=== PATIENT | female | born 1990 | race Caucasian/White ===

== ENCOUNTER 2019-06-30 04:15 | Inpatient (IN) | payer OTHER ==
[2019-06-30] MEDS ORDERED: Nalbuphine 10 MG/ML Syringe IVPUSH PRN (19:27)
[2019-06-30] MEDS ORDERED: Calcium Carbonate 500 MG Tab.Chew PO PRN (19:27)
[2019-06-30] MEDS ORDERED: Sodium Chloride 0.9% 10 ML Syringe FLUSH PRN (19:27)
[2019-06-30] MEDS ORDERED: Ondansetron 4 MG/2 ML SDV IVPUSH PRN (19:27)
[2019-06-30] MEDS ORDERED: Oxytocin/Lactated Ringers 20 UNIT/1,000 ML BAG IV SCH (19:30)
[2019-06-30] MEDS ORDERED: Oxytocin/Lactated Ringers 10 UNIT/1,000 ML BAG IV SCH (19:30)
[2019-06-30] MEDS ORDERED: Misoprostol 25 MCG (1/4 of 100 MCG) Tab VAG SCH (20:00)
--- NOTE | 2019-06-30 20:12 | PCM.HP.2 ---
<Messi Russ - Last Filed: 06/30/19 20:20> H&P History of Present Illness - General Date of Service: 06/30/19 Admit Problem/Dx: induction, labor and delivery Source of Information: Patient History Limitations: Reports: No Limitations - History of Present Illness Initial Comments - Free Text/Narative: Ms. La Fang is a very pleasant who has an TYRESE of 07/05/2019 who presents to L&D for induction, labor and delivery. She is currently 39 weeks and 2 days gestational age. Her induction was scheduled per Dr. Godinez who she has been seeing regularly, most recently 06/23/2019 where she measured 43 cm fundal height and FHR of 144. Today she report having tightness in her upper abdomen who "thinks she was having contractions". These contractions started happening this afternoon (06/30) and admits they come and go. She describes them as "more uncomfortable rather than a pain". She reports having continued low back pain that is worse and more frequent. She endorses that last night her pain was as much as a 7/10 but right now a 3/10. She has used a heating pad and taken a lot of baths which seem to help and denies the pain radiating anywhere else or other symptoms with this pain. She denies any bleeding disorders, asthma or hypertension. GBS: (negative) Blood type: A+ Blood sugars - "i was good this week", pt denies any high sugars since her last appointment. Pt has been monitoring throughout since 02/23/2019 2/2 to an abnormal GTT. U/S findings: velamentous cord insertion on 03/06 U/S, probable nuchal cord on 05/28 U/S Last exam per Dr. Godinez on 06/18/2019: "cervix closed, long, soft, posterior, vertex floating" Labs: (04/06/2019) RBC: 4.36 WBC: 14.4 Hgb: 12.7 Hct: 38.2 Plt: 238 - Related Data Allergies/Adverse Reactions: Allergies Allergy/AdvReac Type Severity Reaction Status Date / Time No Known Allergies Allergy Verified 06/30/19 19:26 Home Medications: Home Meds Vit with Ca/FA/Iron [ Plus Iron] 1 each PO DAILY #40 tablet [Rx] H&P Review of Systems - Review of Systems: Review Of Systems: See Below General: Reports: No Symptoms, Other (Patient reports having hot flashes the last couple of months of her - not everyday) HEENT: Reports: Other (pt reports "on the tail end of a sinus infection", reports having congestion in her nose as well as ear pressure. Endorses it having got better.) Pulmonary: Reports: No Symptoms, Shortness of Breath (relates only sometimes not able to take full breath, denies dizzyness, painful breathing, rapid/ shallow breaths) Cardiovascular: Reports: No Symptoms, Edema (has been relatively present throughout ) Gastrointestinal: Reports: No Symptoms Genitourinary: Reports: No Symptoms Musculoskeletal: Reports: No Symptoms Skin: Reports: No Symptoms Psychiatric: Reports: No Symptoms Neurological: Reports: No Symptoms Hematologic/Lymphatic: Reports: No Symptoms Immunologic: Reports: No Symptoms Exam - Exam Exam: See Below - Vital Signs Weight: 286 lb - Exam General: Alert, Oriented HEENT: Conjunctiva Clear, Hearing Intact, Pupils Equal, Pupils Reactive Neck: Supple, Trachea Midline, Full Range of Motion Cardiovascular: Regular Rate, Regular Rhythm (No M,R,G), Normal S1, Normal S2 Extremities: Normal Inspection, Pedal Edema (2+) Peripheral Pulses: 2+: Radial (L) (normal), Radial (R) (normal) Skin: Warm, Dry, Intact Neuro Extensive - Mental Status: Alert, Oriented x3, Normal Mood/Affect, Normal Cognition Psychiatric: Alert, Normal Affect, Normal Mood - Patient Data Result Diagrams: 06/30/19 19:50 Problem List Initiated/Reviewed/Updated: Yes <Duke Godinez - Last Filed: 07/01/19 15:19> H&P History of Present Illness - General Admit Problem/Dx: Admission Diagnosis/Problem Admission Diagnosis/Problem Exam - Vital Signs Vital Signs: Last Vital Signs Temp 97.9 F 06/30/19 19:27 Pulse 67 06/30/19 19:27 Resp 16 06/30/19 19:27 BP 128/69 06/30/19 19:27 Pulse Ox 97 07/01/19 01:57 - Patient Data Lab Results Last 24 hrs: Laboratory Results - last 24 hr 06/30/19 06/30/19 06/30/19 Range/Units 19:50 19:50 23:56 WBC 10.62 H (3.98-10.04) K/mm3 RBC 4.05 (3.98-5.22) M/mm3 Hgb 11.9 (11.2-15.7) gm/dl Hct 35.0 (34.1-44.9) % MCV 86.4 (79.4-94.8) fl MCH 29.4 (25.6-32.2) pg MCHC 34.0 (32.2-35.5) g/dl RDW Std Deviation 43.2 (36.4-46.3) fL Plt Count 239 (182-369) K/mm3 MPV 10.4 (9.4-12.3) fl Neut % (Auto) 70.2 (34.0-71.1) % Lymph % (Auto) 22.3 (19.3-51.7) % [place] % (Auto) 6.6 (4.7-12.5) % Eos % (Auto) 0.8 (0.7-5.8) Baso % (Auto) 0.1 (0.1-1.2) % Neut # (Auto) 7.46 H (1.56-6.13) K/mm3 Lymph # (Auto) 2.37 (1.18-3.74) K/mm3 [place] # (Auto) 0.70 H (0.24-0.36) K/mm3 Eos # (Auto) 0.08 (0.04-0.36) K/mm3 Baso # (Auto) 0.01 (0.01-0.08) K/mm3 POC Glucose 83 (70-105) mg/dL RPR Non-reactive (NONREACTIVE) 07/01/19 Range/Units 03:53 WBC (3.98-10.04) K/mm3 RBC (3.98-5.22) M/mm3 Hgb (11.2-15.7) gm/dl Hct (34.1-44.9) % MCV (79.4-94.8) fl MCH (25.6-32.2) pg MCHC (32.2-35.5) g/dl RDW Std Deviation (36.4-46.3) fL Plt Count (182-369) K/mm3 MPV (9.4-12.3) fl Neut % (Auto) (34.0-71.1) % Lymph % (Auto) (19.3-51.7) % [place] % (Auto) (4.7-12.5) % Eos % (Auto) (0.7-5.8) Baso % (Auto) (0.1-1.2) % Neut # (Auto) (1.56-6.13) K/mm3 Lymph # (Auto) (1.18-3.74) K/mm3 [place] # (Auto) (0.24-0.36) K/mm3 Eos # (Auto) (0.04-0.36) K/mm3 Baso # (Auto) (0.01-0.08) K/mm3 POC Glucose 101 (70-105) mg/dL RPR (NONREACTIVE) Result Diagrams: 06/30/19 19:50 Sepsis Event Note - Focused Exam Vital Signs: Vital Signs Temp Pulse Resp BP Pulse Ox 07/01/19 01:57 97 06/30/19 19:27 97.9 F 67 16 128/69 98 Date Exam was Performed: 07/01/19 Time Exam was Performed: 15:18 - Problem List (1) 39 weeks gestation of SNOMED Code(s): 10032360 ICD Code: Z3A.39 - 39 WEEKS GESTATION OF Status: Acute Current Visit: Yes Problem List Initiated/Reviewed/Updated: No Orders Last 24hrs: Active Orders 24 hr Category Date Time Status Patient Status [ADT] Routine ADT 06/30/19 19:27 Active Activity as Tolerated [RC] PFP Care 06/30/19 19:27 Active Communication Order [RC] ASDIRECTED Care 06/30/19 19:27 Active Communication Order [RC] ASDIRECTED Care 07/01/19 01:57 Active Cooling Warming Measures [RC] ASDIRECTED Care 07/01/19 01:57 Active Heart Tones [RC] ASDIRECTED Care 06/30/19 19:27 Active Notify Provider [RC] ASDIRECTED Care 07/01/19 01:57 Active Notify Provider [RC] PFP Care 06/30/19 19:27 Active Notify Provider [RC] PRN Care 06/30/19 19:27 Active Oxygen Therapy [RC] ASDIRECTED Care 07/01/19 01:57 Active Peripheral IV Care [RC] . DIRECTED Care 06/30/19 19:27 Active Pulse Oximetry [RC] ASDIRECTED Care 07/01/19 01:57 Active Vital Signs [RC] PER UNIT ROUTINE Care 06/30/19 19:27 Active Regular Diet [DIET] Diet 07/01/19 Breakfast Active Bupivacaine/fentaNYL/NS [fentaNYL/Bupivacaine/NS 2 MCG- Med 07/01/19 01:57 Active 0.125% 100 ML] 100 ml EPIDUR CONTINUOUS PRN Calcium Carbonate [Tums] Med 06/30/19 19:27 Active 1,000 mg PO Q2H PRN Lactated Ringers [Ringers, Lactated] 1,000 ml Med 06/30/19 19:30 Active IV ASDIRECTED Nalbuphine [Nubain] Med 06/30/19 19:27 Active 10 mg IVPUSH Q2H PRN Ondansetron [Zofran] Med 06/30/19 19:27 Active 4 mg IVPUSH Q4H PRN Oxytocin/Lactated Ringers [Pitocin in LR 10 Units/1,000 Med 06/30/19 19:30 Active ML] 10 unit in 1,000 ml IV TITRATE Oxytocin/Lactated Ringers [Pitocin in LR 20 Units/1,000 Med 06/30/19 19:30 Active ML] 20 unit in 1,000 ml IV .CONTINUOUS Sodium Chloride 0.9% [Saline Flush] Med 06/30/19 19:27 Active 10 ml FLUSH ASDIRECTED PRN diphenhydrAMINE [Benadryl] Med 07/01/19 01:57 Active 25 mg IVPUSH Q6H PRN ePHEDrine [ePHEDrine sulfate] Med 07/01/19 01:57 Active 5 mg IVPUSH ASDIRECTED PRN fentaNYL [Sublimaze] Med 07/01/19 01:57 Active 100 mcg EPIDUR Q3H PRN miSOPROStoL [Cytotec] Med 06/30/19 20:00 Active 25 mcg VAG ONETIME Electronic Heart Tones Ext w TOCO [WOMSER] Oth 06/30/19 19:27 Ordered Routine Electronic Heart Tones Internal [WOMSER] Per Unit Oth 06/30/19 19:27 Ordered Routine Peripheral IV Insertion Adult [OM.PC] Routine Oth 06/30/19 19:27 Ordered Resuscitation Status Routine Resus Stat 06/30/19 19:27 Ordered Medication Orders Calcium Carbonate/Glycine (Tums) 1,000 mg PO Q2H PRN PRN Reason: Indigestion Diphenhydramine HCl (Benadryl) 25 mg IVPUSH Q6H PRN PRN Reason: Itching Ephedrine Sulfate (Ephedrine Sulfate) 5 mg IVPUSH ASDIRECTED PRN PRN Reason: HYPOTENTSION Last Admin: 07/01/19 03:35 Dose: 5 mg Fentanyl (Sublimaze) 100 mcg EPIDUR Q3H PRN PRN Reason: Pain Last Admin: 07/01/19 02:19 Dose: 100 mcg Fentanyl/Bupivacaine HCl (Fentanyl/Bupivacaine/Ns 2 Mcg-0.125% 100 Ml) 100 ml EPIDUR CONTINUOUS PRN PRN Reason: Pain Last Admin: 07/01/19 02:19 Dose: 100 ml Lactated Ringer's (Ringers, Lactated) 1,000 mls @ 100 mls/hr IV ASDIRECTED BRITTNEY Last Admin: 07/01/19 03:36 Dose: 100 mls/hr Infusion: 07/01/19 03:36 Dose: 100 mls/hr Admin: 07/01/19 01:28 Dose: 100 mls/hr Oxytocin/Lactated Ringer's (Pitocin In Lr 10 Units/1,000 Ml) 10 unit in 1,000 mls @ 12 mls/hr IV TITRATE BRITTNEY; Protocol Oxytocin/Lactated Ringer's (Pitocin In Lr 20 Units/1,000 Ml) 20 unit in 1,000 mls @ 500 mls/hr IV .CONTINUOUS BRITTNEY Misoprostol (Cytotec) 25 mcg VAG ONETIME BRITTNEY Last Admin: 06/30/19 19:56 Dose: 25 mcg Nalbuphine HCl (Nubain) 10 mg IVPUSH Q2H PRN PRN Reason: Pain Ondansetron HCl (Zofran) 4 mg IVPUSH Q4H PRN PRN Reason: Nausea/Vomiting Sodium Chloride (Saline Flush) 10 ml FLUSH ASDIRECTED PRN PRN Reason: Keep Vein Open Patient seen, examined by me and discussed with student. - Mortality Measure Prognosis:: Good
[2019-07-01] MEDS ORDERED: Bupivacaine 0.25% 10 ML SDV ONE
[2019-07-01] MEDS: Lactated Ringers 1,000 ML IV SCH ×2 (01:28→03:36)
[2019-07-01] MEDS ORDERED: diphenhydrAMINE 50 MG/ML SDV IVPUSH PRN (01:57)
[2019-07-01] MEDS ORDERED: ePHEDrine 50 MG/ML SDV IVPUSH PRN (01:57)
[2019-07-01] MEDS ORDERED: fentaNYL 100 MCG/2 ML SDV EPIDUR PRN (01:57)
[2019-07-01] MEDS ORDERED: Bupivacaine/fentaNYL/NS 100 ML Bag EPIDUR PRN (01:57)
--- NOTE | 2019-07-01 02:35 | PCM.PREANE ---
Preanesthetic Assessment - Procedure Proposed Procedure: epidural - Anesthesia/Transfusion/Family Hx Anesthesia History: Prior Anesthesia Without Reaction Family History of Anesthesia Reaction: No Transfusion History: No Prior Transfusion(s) - Review of Systems General: Fatigue Pulmonary: No Symptoms Cardiovascular: No Symptoms Gastrointestinal: Abdominal Pain (labor) Neurological: No Symptoms Other: Reports: None - Physical Assessment Vital Signs: Last Vital Signs Temp Pulse Resp BP Pulse Ox 97 07/01/19 01:57 Height: 1.75 m Weight: 129.727 kg ASA Class: 2 Mental Status: Alert & Oriented x3 Airway Class: Mallampati = 2 Dentition: Reports: Normal Dentition Thyro-Mental Finger Breadths: 3 Mouth Opening Finger Breadths: 3 ROM/Head Extension: Full Lungs: Clear to Auscultation, Normal Respiratory Effort Cardiovascular: Regular Rate, Regular Rhythm - Lab Values: Laboratory Last Values WBC 10.62 K/mm3 (3.98-10.04) H 06/30/19 19:50 RBC 4.05 M/mm3 (3.98-5.22) 06/30/19 19:50 Hgb 11.9 gm/dl (11.2-15.7) 06/30/19 19:50 Hct 35.0 % (34.1-44.9) 06/30/19 19:50 MCV 86.4 fl (79.4-94.8) 06/30/19 19:50 MCH 29.4 pg (25.6-32.2) 06/30/19 19:50 MCHC 34.0 g/dl (32.2-35.5) 06/30/19 19:50 RDW Std Deviation 43.2 fL (36.4-46.3) 06/30/19 19:50 Plt Count 239 K/mm3 (182-369) 06/30/19 19:50 MPV 10.4 fl (9.4-12.3) 06/30/19 19:50 Neut % (Auto) 70.2 % (34.0-71.1) 06/30/19 19:50 Lymph % (Auto) 22.3 % (19.3-51.7) 06/30/19 19:50 [place] % (Auto) 6.6 % (4.7-12.5) 06/30/19 19:50 Eos % (Auto) 0.8 (0.7-5.8) 06/30/19 19:50 Baso % (Auto) 0.1 % (0.1-1.2) 06/30/19 19:50 Neut # (Auto) 7.46 K/mm3 (1.56-6.13) H 06/30/19 19:50 Lymph # (Auto) 2.37 K/mm3 (1.18-3.74) 06/30/19 19:50 [place] # (Auto) 0.70 K/mm3 (0.24-0.36) H 06/30/19 19:50 Eos # (Auto) 0.08 K/mm3 (0.04-0.36) 06/30/19 19:50 Baso # (Auto) 0.01 K/mm3 (0.01-0.08) 06/30/19 19:50 POC Glucose 83 mg/dL (70-105) 06/30/19 23:56 RPR Non-reactive (NONREACTIVE) 06/30/19 19:50 - Allergies Allergies/Adverse Reactions: Allergies Allergy/AdvReac Type Severity Reaction Status Date / Time No Known Allergies Allergy Verified 06/30/19 19:26 - Anesthesia Plan Pre-Op Medication Ordered: None - Acknowledgements Anesthesia Type Planned: Epidural Pt an Appropriate Candidate for the Planned Anesthesia: Yes Alternatives and Risks of Anesthesia Discussed w Pt/Guardian: Yes Pt/Guardian Understands and Agrees with Anesthesia Plan: Yes PreAnesthesia Questionnaire - Past Health History Medical/Surgical History: Denies Medical/Surgical History HEENT History: Reports: Other (See Below) Other HEENT History: wears contacts Respiratory History: Reports: Asthma, Other (See Below) Other Respiratory History: Exercise induced asthma Gastrointestinal History: Reports: GERD [employer] History: Reports: - SUBSTANCE USE Tobacco Use Within Last Twelve Months: Smokeless Tobacco Second Hand Smoke Exposure: Yes Recreational Drug Use History: No - HOME MEDS Home Medications: Home Meds Vit with Ca/FA/Iron [ Plus Iron] 1 each PO DAILY #40 tablet [Rx] - CURRENT (IN HOUSE) MEDS Current Meds: Current Medications Calcium Carbonate/Glycine (Tums) 1,000 mg PO Q2H PRN PRN Reason: Indigestion Diphenhydramine HCl (Benadryl) 25 mg IVPUSH Q6H PRN PRN Reason: Itching Ephedrine Sulfate (Ephedrine Sulfate) 5 mg IVPUSH ASDIRECTED PRN PRN Reason: HYPOTENTSION Fentanyl (Sublimaze) 100 mcg EPIDUR Q3H PRN PRN Reason: Pain Last Admin: 07/01/19 02:19 Dose: 100 mcg Fentanyl/Bupivacaine HCl (Fentanyl/Bupivacaine/Ns 2 Mcg-0.125% 100 Ml) 100 ml EPIDUR CONTINUOUS PRN PRN Reason: Pain Last Admin: 07/01/19 02:19 Dose: 100 ml Lactated Ringer's (Ringers, Lactated) 1,000 mls @ 100 mls/hr IV ASDIRECTED BRITTNEY Last Admin: 07/01/19 01:28 Dose: 100 mls/hr Oxytocin/Lactated Ringer's (Pitocin In Lr 10 Units/1,000 Ml) 10 unit in 1,000 mls @ 12 mls/hr IV TITRATE BRITTNEY; Protocol Oxytocin/Lactated Ringer's (Pitocin In Lr 20 Units/1,000 Ml) 20 unit in 1,000 mls @ 500 mls/hr IV .CONTINUOUS BRITTNEY Misoprostol (Cytotec) 25 mcg VAG ONETIME BRITTNEY Last Admin: 06/30/19 19:56 Dose: 25 mcg Misoprostol (Cytotec) 50 mcg VAG ONETIME ONE Stop: 07/01/19 04:01 Nalbuphine HCl (Nubain) 10 mg IVPUSH Q2H PRN PRN Reason: Pain Ondansetron HCl (Zofran) 4 mg IVPUSH Q4H PRN PRN Reason: Nausea/Vomiting Sodium Chloride (Saline Flush) 10 ml FLUSH ASDIRECTED PRN PRN Reason: Keep Vein Open Discontinued Medications Misoprostol (Cytotec) 25 mcg VAG ONETIME ONE Stop: 07/01/19 00:01
[2019-07-01] MEDS ORDERED: Misoprostol 25 MCG (1/4 of 100 MCG) Tab VAG ONE ×2 (04:00)
--- NOTE | 2019-07-01 04:42 | PCM.DEL ---
L & D Note - General Info Date of Service: 07/01/19 Mother's Due Date: 07/05/19 - Delivery Note Labor: Augmented by Oxytocin Cervical Ripening Method: Misoprostil Delivery Outcome: Livebirth (Male liveborn Saturday07/01/2019 at 0415 hrs. CHIN nuchal cord 2 under epidural anesthesia over no episiotomy Apgars 8/8 at one and 5 minutes respectively 30/7/50 grams 8 lbs. 4 oz.) Infant Delivery Method: Spontaneous Vaginal Delivery-Single Delivery Mode: Spontaneous Presentation: Left Occiput Anterior (CHIN) Nuchal Cord: Present (x2 tight unable to reduce over head or shoulders and cord clamped and cut delivery approximately 10 seconds after cutting cord) Anesthesia Type: None Episiotomy Type: None Laceration: None Placenta: Intact, Spontaneous (0418 hrs Saturday07/01/2019 velamentous insertion of the cord examined and intact) Cord: 3 Vessels Estimated Blood Loss: 250 Resuscitation Needed: No : Suctioned, Bulb Syringe, Stimulated, Warmed, [place] Used, Warmer Used Provider: Duke Godinez Score 1 min: 8 Score 5 min: 8 - General Info Date of Service: 07/01/19 Functional Status: Reports: Pain Controlled - Review of Systems General: Reports: No Symptoms HEENT: Reports: No Symptoms Pulmonary: Reports: No Symptoms Cardiovascular: Reports: No Symptoms Gastrointestinal: Reports: No Symptoms Genitourinary: Reports: No Symptoms Musculoskeletal: Reports: No Symptoms Skin: Reports: No Symptoms Neurological: Reports: No Symptoms Psychiatric: Reports: No Symptoms - Patient Data Vitals - Most Recent: Last Vital Signs Temp 97.9 F 06/30/19 19:27 Pulse 67 06/30/19 19:27 Resp 16 06/30/19 19:27 BP 128/69 06/30/19 19:27 Pulse Ox 97 07/01/19 01:57 Weight - Most Recent: 286 lb Lab Results Last 24 Hours: Laboratory Results - last 24 hr 06/30/19 06/30/19 06/30/19 Range/Units 19:50 19:50 23:56 WBC 10.62 H (3.98-10.04) K/mm3 RBC 4.05 (3.98-5.22) M/mm3 Hgb 11.9 (11.2-15.7) gm/dl Hct 35.0 (34.1-44.9) % MCV 86.4 (79.4-94.8) fl MCH 29.4 (25.6-32.2) pg MCHC 34.0 (32.2-35.5) g/dl RDW Std Deviation 43.2 (36.4-46.3) fL Plt Count 239 (182-369) K/mm3 MPV 10.4 (9.4-12.3) fl Neut % (Auto) 70.2 (34.0-71.1) % Lymph % (Auto) 22.3 (19.3-51.7) % Sac % (Auto) 6.6 (4.7-12.5) % Eos % (Auto) 0.8 (0.7-5.8) Baso % (Auto) 0.1 (0.1-1.2) % Neut # (Auto) 7.46 H (1.56-6.13) K/mm3 Lymph # (Auto) 2.37 (1.18-3.74) K/mm3 Sac # (Auto) 0.70 H (0.24-0.36) K/mm3 Eos # (Auto) 0.08 (0.04-0.36) K/mm3 Baso # (Auto) 0.01 (0.01-0.08) K/mm3 POC Glucose 83 (70-105) mg/dL RPR Non-reactive (NONREACTIVE) 07/01/19 Range/Units 03:53 WBC (3.98-10.04) K/mm3 RBC (3.98-5.22) M/mm3 Hgb (11.2-15.7) gm/dl Hct (34.1-44.9) % MCV (79.4-94.8) fl MCH (25.6-32.2) pg MCHC (32.2-35.5) g/dl RDW Std Deviation (36.4-46.3) fL Plt Count (182-369) K/mm3 MPV (9.4-12.3) fl Neut % (Auto) (34.0-71.1) % Lymph % (Auto) (19.3-51.7) % Sac % (Auto) (4.7-12.5) % Eos % (Auto) (0.7-5.8) Baso % (Auto) (0.1-1.2) % Neut # (Auto) (1.56-6.13) K/mm3 Lymph # (Auto) (1.18-3.74) K/mm3 Sac # (Auto) (0.24-0.36) K/mm3 Eos # (Auto) (0.04-0.36) K/mm3 Baso # (Auto) (0.01-0.08) K/mm3 POC Glucose 101 (70-105) mg/dL RPR (NONREACTIVE) Med Orders - Current: Current Medications Calcium Carbonate/Glycine (Tums) 1,000 mg PO Q2H PRN PRN Reason: Indigestion Diphenhydramine HCl (Benadryl) 25 mg IVPUSH Q6H PRN PRN Reason: Itching Ephedrine Sulfate (Ephedrine Sulfate) 5 mg IVPUSH ASDIRECTED PRN PRN Reason: HYPOTENTSION Last Admin: 07/01/19 03:35 Dose: 5 mg Fentanyl (Sublimaze) 100 mcg EPIDUR Q3H PRN PRN Reason: Pain Last Admin: 07/01/19 02:19 Dose: 100 mcg Fentanyl/Bupivacaine HCl (Fentanyl/Bupivacaine/Ns 2 Mcg-0.125% 100 Ml) 100 ml EPIDUR CONTINUOUS PRN PRN Reason: Pain Last Admin: 07/01/19 02:19 Dose: 100 ml Lactated Ringer's (Ringers, Lactated) 1,000 mls @ 100 mls/hr IV ASDIRECTED BRITTNEY Last Admin: 07/01/19 03:36 Dose: 100 mls/hr Oxytocin/Lactated Ringer's (Pitocin In Lr 10 Units/1,000 Ml) 10 unit in 1,000 mls @ 12 mls/hr IV TITRATE BRITTNEY; Protocol Oxytocin/Lactated Ringer's (Pitocin In Lr 20 Units/1,000 Ml) 20 unit in 1,000 mls @ 500 mls/hr IV .CONTINUOUS BRITTNEY Misoprostol (Cytotec) 25 mcg VAG ONETIME BRITTNEY Last Admin: 06/30/19 19:56 Dose: 25 mcg Nalbuphine HCl (Nubain) 10 mg IVPUSH Q2H PRN PRN Reason: Pain Ondansetron HCl (Zofran) 4 mg IVPUSH Q4H PRN PRN Reason: Nausea/Vomiting Sodium Chloride (Saline Flush) 10 ml FLUSH ASDIRECTED PRN PRN Reason: Keep Vein Open Discontinued Medications Misoprostol (Cytotec) 25 mcg VAG ONETIME ONE Stop: 07/01/19 00:01 Misoprostol (Cytotec) 50 mcg VAG ONETIME ONE Stop: 07/01/19 04:01 - Exam General: Alert, Oriented (Female) Exam: Normal External Exam Extremities: Normal Inspection, Non-Tender, No Pedal Edema, Normal Capillary Refill Skin: Warm, Dry, Intact Psy/Mental Status: Alert, Normal Affect, Normal Mood - Problem List & Annotations (1) 39 weeks gestation of SNOMED Code(s): 85740998 Code(s): Z3A.39 - 39 WEEKS GESTATION OF Status: Acute Current Visit: Yes (2) Double nuchal cord SNOMED Code(s): 171271617 Code(s): O69.1XX0 - LABOR AND DELIVERY COMP BY CORD AROUND NECK, W COMPRSN, UNSP Status: Acute Current Visit: Yes Qualifiers: Fetus number: single or unspecified fetus Qualified Code(s): O69.1XX0 - Labor and delivery complicated by cord around neck, with compression, not applicable or unspecified (3) Normal vaginal delivery SNOMED Code(s): 91932175, 708565582 Code(s): O80 - ENCOUNTER FOR FULL-TERM UNCOMPLICATED DELIVERY Status: Acute Current Visit: Yes - Problem List Review Problem List Initiated/Reviewed/Updated: No - My Orders Last 24 Hours: My Active Orders 06/30/19 19:27 Patient Status [ADT] Routine Activity as Tolerated [RC] PFP Communication Order [RC] ASDIRECTED Heart Tones [RC] ASDIRECTED Notify Provider [RC] PFP Notify Provider [RC] PRN Peripheral IV Care [RC] . DIRECTED Vital Signs [RC] PER UNIT ROUTINE Calcium Carbonate [Tums] 1,000 mg PO Q2H PRN Nalbuphine [Nubain] 10 mg IVPUSH Q2H PRN Ondansetron [Zofran] 4 mg IVPUSH Q4H PRN Sodium Chloride 0.9% [Saline Flush] 10 ml FLUSH ASDIRECTED PRN Electronic Heart Tones Ext w TOCO [WOMSER] Routine Electronic Heart Tones Internal [WOMSER] Per Unit Routine Peripheral IV Insertion Adult [OM.PC] Routine Resuscitation Status Routine 06/30/19 19:30 Lactated Ringers [Ringers, Lactated] 1,000 ml IV ASDIRECTED Oxytocin/Lactated Ringers [Pitocin in LR 10 Units/1,000 ML] 10 unit in 1,000 ml IV TITRATE Oxytocin/Lactated Ringers [Pitocin in LR 20 Units/1,000 ML] 20 unit in 1,000 ml IV .CONTINUOUS 06/30/19 20:00 miSOPROStoL [Cytotec] 25 mcg VAG ONETIME 07/01/19 Breakfast Regular Diet [DIET]
[2019-07-01] MEDS ORDERED: Benzocaine/Menthol 20%-0.5% Spray 56 GM Canister TOP PRN (05:28)
[2019-07-01] MEDS ORDERED: Witch Hazel Medicated Pads 40/Jar TOP PRN (05:28)
[2019-07-01] MEDS ORDERED: Acetaminophen 325 MG Tab PO PRN (05:28)
[2019-07-01] MEDS ORDERED: Docusate Sodium 100 MG Cap PO PRN (05:28)
[2019-07-01] MEDS: Ibuprofen 600 MG Tab PO PRN (06:13)
--- NOTE | 2019-07-01 07:40 | PCM48HPAN ---
Post Anesthesia Note - EVALUATION WITHIN 48HRS OF ANESTHETIC Vital Signs in Normal Range: Yes Patient Participated in Evaluation: Yes Respiratory Function Stable: Yes Airway Patent: Yes Cardiovascular Function Stable: Yes Hydration Status Stable: Yes Pain Control Satisfactory: Yes Nausea and Vomiting Control Satisfactory: Yes Mental Status Recovered: Yes Vital Signs: Last Vital Signs Temp 97.9 F 06/30/19 19:27 Pulse 67 06/30/19 19:27 Resp 16 06/30/19 19:27 BP 128/69 06/30/19 19:27 Pulse Ox 97 07/01/19 01:57
[2019-07-02] MEDS: Ibuprofen 600 MG Tab PO PRN (04:11)
--- NOTE | 2019-07-02 08:16 | PCM.DCSUM1 ---
Discharge Summary - Hospital Course Free Text/Narrative:: [facility] LIVE L/D Delivery Note Patient Name: SO VOSS Date of : 89 Patient Status: Inpatient Attending Provider: Duke Godinez Date: 07/01/19 04:36 Initialization Date: 07/01/19 04:36 L & D Note - General Info Date of Service: 07/01/19 Mother's Due Date: 07/05/19 - Delivery Note Labor: Augmented by Oxytocin Cervical Ripening Method: Misoprostil Delivery Outcome: Livebirth (Male liveborn Saturday07/01/2019 at 0415 hrs. CHIN nuchal cord 2 under epidural anesthesia over no episiotomy Apgars 8/8 at one and 5 minutes respectively 30/7/50 grams 8 lbs. 4 oz.) Infant Delivery Method: Spontaneous Vaginal Delivery-Single Infant Delivery Mode: Spontaneous Presentation: Left Occiput Anterior (CHIN) Nuchal Cord: Present (x2 tight unable to reduce over head or shoulders and cord clamped and cut delivery approximately 10 seconds after cutting cord) Anesthesia Type: None Episiotomy Type: None Laceration: None Placenta: Intact, Spontaneous (0418 hrs Saturday07/01/2019 velamentous insertion of the cord examined and intact) Cord: 3 Vessels Estimated Blood Loss: 250 Resuscitation Needed: No [place]: Suctioned, Bulb Syringe, Stimulated, Warmed, [place] Used, Warmer Used Provider: Duke Godinez Score 1 min: 8 Score 5 min: 8 - General Info Date of Service: 07/01/19 Functional Status: Reports: Pain Controlled - Review of Systems General: Reports: No Symptoms HEENT: Reports: No Symptoms Pulmonary: Reports: No Symptoms Cardiovascular: Reports: No Symptoms Gastrointestinal: Reports: No Symptoms Genitourinary: Reports: No Symptoms Musculoskeletal: Reports: No Symptoms Skin: Reports: No Symptoms Neurological: Reports: No Symptoms Psychiatric: Reports: No Symptoms - Patient Data Vitals - Most Recent: Last Vital Signs Temp 97.9 F 06/30/19 19:27 Pulse 67 06/30/19 19:27 Resp 16 06/30/19 19:27 BP 128/69 06/30/19 19:27 Pulse Ox 97 07/01/19 01:57 Weight - Most Recent: 286 lb Lab Results Last 24 Hours: Laboratory Results - last 24 hr 06/30/19 06/30/19 06/30/19 Range/Units 19:50 19:50 23:56 WBC 10.62 H (3.98-10.04) K/mm3 RBC 4.05 (3.98-5.22) M/mm3 Hgb 11.9 (11.2-15.7) gm/dl Hct 35.0 (34.1-44.9) % MCV 86.4 (79.4-94.8) fl MCH 29.4 (25.6-32.2) pg MCHC 34.0 (32.2-35.5) g/dl RDW Std Deviation 43.2 (36.4-46.3) fL Plt Count 239 (182-369) K/mm3 MPV 10.4 (9.4-12.3) fl Neut % (Auto) 70.2 (34.0-71.1) % Lymph % (Auto) 22.3 (19.3-51.7) % Atlantic % (Auto) 6.6 (4.7-12.5) % Eos % (Auto) 0.8 (0.7-5.8) Baso % (Auto) 0.1 (0.1-1.2) % Neut # (Auto) 7.46 H (1.56-6.13) K/mm3 Lymph # (Auto) 2.37 (1.18-3.74) K/mm3 Atlantic # (Auto) 0.70 H (0.24-0.36) K/mm3 Eos # (Auto) 0.08 (0.04-0.36) K/mm3 Baso # (Auto) 0.01 (0.01-0.08) K/mm3 POC Glucose 83 (70-105) mg/dL RPR Non-reactive (NONREACTIVE) 07/01/19 Range/Units 03:53 WBC (3.98-10.04) K/mm3 RBC (3.98-5.22) M/mm3 Hgb (11.2-15.7) gm/dl Hct (34.1-44.9) % MCV (79.4-94.8) fl MCH (25.6-32.2) pg MCHC (32.2-35.5) g/dl RDW Std Deviation (36.4-46.3) fL Plt Count (182-369) K/mm3 MPV (9.4-12.3) fl Neut % (Auto) (34.0-71.1) % Lymph % (Auto) (19.3-51.7) % Atlantic % (Auto) (4.7-12.5) % Eos % (Auto) (0.7-5.8) Baso % (Auto) (0.1-1.2) % Neut # (Auto) (1.56-6.13) K/mm3 Lymph # (Auto) (1.18-3.74) K/mm3 Atlantic # (Auto) (0.24-0.36) K/mm3 Eos # (Auto) (0.04-0.36) K/mm3 Baso # (Auto) (0.01-0.08) K/mm3 POC Glucose 101 (70-105) mg/dL RPR (NONREACTIVE) Med Orders - Current: Current Medications Calcium Carbonate/Glycine (Tums) 1,000 mg PO Q2H PRN PRN Reason: Indigestion Diphenhydramine HCl (Benadryl) 25 mg IVPUSH Q6H PRN PRN Reason: Itching Ephedrine Sulfate (Ephedrine Sulfate) 5 mg IVPUSH ASDIRECTED PRN PRN Reason: HYPOTENTSION Last Admin: 07/01/19 03:35 Dose: 5 mg Fentanyl (Sublimaze) 100 mcg EPIDUR Q3H PRN PRN Reason: Pain Last Admin: 07/01/19 02:19 Dose: 100 mcg Fentanyl/Bupivacaine HCl (Fentanyl/Bupivacaine/Ns 2 Mcg-0.125% 100 Ml) 100 ml EPIDUR CONTINUOUS PRN PRN Reason: Pain Last Admin: 07/01/19 02:19 Dose: 100 ml Lactated Ringer's (Ringers, Lactated) 1,000 mls @ 100 mls/hr IV ASDIRECTED BRITTNEY Last Admin: 07/01/19 03:36 Dose: 100 mls/hr Oxytocin/Lactated Ringer's (Pitocin In Lr 10 Units/1,000 Ml) 10 unit in 1,000 mls @ 12 mls/hr IV TITRATE BRITTNEY; Protocol Oxytocin/Lactated Ringer's (Pitocin In Lr 20 Units/1,000 Ml) 20 unit in 1,000 mls @ 500 mls/hr IV .CONTINUOUS BRITTNEY Misoprostol (Cytotec) 25 mcg VAG ONETIME BRITTNEY Last Admin: 06/30/19 19:56 Dose: 25 mcg Nalbuphine HCl (Nubain) 10 mg IVPUSH Q2H PRN PRN Reason: Pain Ondansetron HCl (Zofran) 4 mg IVPUSH Q4H PRN PRN Reason: Nausea/Vomiting Sodium Chloride (Saline Flush) 10 ml FLUSH ASDIRECTED PRN PRN Reason: Keep Vein Open Discontinued Medications Misoprostol (Cytotec) 25 mcg VAG ONETIME ONE Stop: 07/01/19 00:01 Misoprostol (Cytotec) 50 mcg VAG ONETIME ONE Stop: 07/01/19 04:01 - Exam General: Alert, Oriented (Female) Exam: Normal External Exam Extremities: Normal Inspection, Non-Tender, No Pedal Edema, Normal Capillary Refill Skin: Warm, Dry, Intact Psy/Mental Status: Alert, Normal Affect, Normal Mood - Problem List & Annotations (1) 39 weeks gestation of SNOMED Code(s): 74312227 Code(s): Z3A.39 - 39 WEEKS GESTATION OF Status: Acute Current Visit: Yes (2) Double nuchal cord SNOMED Code(s): 106765354 Code(s): O69.1XX0 - LABOR AND DELIVERY COMP BY CORD AROUND NECK, W COMPRSN, UNSP Status: Acute Current Visit: Yes Qualifiers: Fetus number: single or unspecified fetus Qualified Code(s): O69.1XX0 - Labor and delivery complicated by cord around neck, with compression, not applicable or unspecified (3) Normal vaginal delivery SNOMED Code(s): 30664248, 299391218 Code(s): O80 - ENCOUNTER FOR FULL-TERM UNCOMPLICATED DELIVERY Status: Acute Current Visit: Yes - Problem List Review Problem List Initiated/Reviewed/Updated: No - My Orders Last 24 Hours: My Active Orders 06/30/19 19:27 Patient Status [ADT] Routine Activity as Tolerated [RC] PFP Communication Order [RC] ASDIRECTED Heart Tones [RC] ASDIRECTED Notify Provider [RC] PFP Notify Provider [RC] PRN Peripheral IV Care [RC] . DIRECTED Vital Signs [RC] PER UNIT ROUTINE Calcium Carbonate [Tums] 1,000 mg PO Q2H PRN Nalbuphine [Nubain] 10 mg IVPUSH Q2H PRN Ondansetron [Zofran] 4 mg IVPUSH Q4H PRN Sodium Chloride 0.9% [Saline Flush] 10 ml FLUSH ASDIRECTED PRN Electronic Heart Tones Ext w TOCO [WOMSER] Routine Electronic Heart Tones Internal [WOMSER] Per Unit Routine Peripheral IV Insertion Adult [OM.PC] Routine Resuscitation Status Routine 06/30/19 19:30 Lactated Ringers [Ringers, Lactated] 1,000 ml IV ASDIRECTED Oxytocin/Lactated Ringers [Pitocin in LR 10 Units/1,000 ML] 10 unit in 1,000 ml IV TITRATE Oxytocin/Lactated Ringers [Pitocin in LR 20 Units/1,000 ML] 20 unit in 1,000 ml IV .CONTINUOUS 06/30/19 20:00 miSOPROStoL [Cytotec] 25 mcg VAG ONETIME 07/01/19 Breakfast Regular Diet [DIET] HPI Initial Comments: [facility] LIVE L/D Delivery Note Patient Name: SO VOSS Date of : 89 Patient Status: Inpatient Attending Provider: Duke Godinez Date: 07/01/19 04:36 Initialization Date: 07/01/19 04:36 L & D Note - General Info Date of Service: 07/01/19 Mother's Due Date: 07/05/19 - Delivery Note Labor: Augmented by Oxytocin Cervical Ripening Method: Misoprostil Delivery Outcome: Livebirth (Male liveborn Saturday07/01/2019 at 0415 hrs. CHIN nuchal cord 2 under epidural anesthesia over no episiotomy Apgars 8/8 at one and 5 minutes respectively 30/7/50 grams 8 lbs. 4 oz.) Delivery Method: Spontaneous Vaginal Delivery-Single Delivery Mode: Spontaneous Presentation: Left Occiput Anterior (CHIN) Nuchal Cord: Present (x2 tight unable to reduce over head or shoulders and cord clamped and cut delivery approximately 10 seconds after cutting cord) Anesthesia Type: None Episiotomy Type: None Laceration: None Placenta: Intact, Spontaneous (0418 hrs Saturday07/01/2019 velamentous insertion of the cord examined and intact) Cord: 3 Vessels Estimated Blood Loss: 250 Resuscitation Needed: No : Suctioned, Bulb Syringe, Stimulated, Warmed, [place] Used, Warmer Used Provider: Duke Godinez Score 1 min: 8 Score 5 min: 8 - General Info Date of Service: 07/01/19 Functional Status: Reports: Pain Controlled - Review of Systems General: Reports: No Symptoms HEENT: Reports: No Symptoms Pulmonary: Reports: No Symptoms Cardiovascular: Reports: No Symptoms Gastrointestinal: Reports: No Symptoms Genitourinary: Reports: No Symptoms Musculoskeletal: Reports: No Symptoms Skin: Reports: No Symptoms Neurological: Reports: No Symptoms Psychiatric: Reports: No Symptoms - Patient Data Vitals - Most Recent: Last Vital Signs Temp 97.9 F 06/30/19 19:27 Pulse 67 06/30/19 19:27 Resp 16 06/30/19 19:27 BP 128/69 06/30/19 19:27 Pulse Ox 97 07/01/19 01:57 Weight - Most Recent: 286 lb Lab Results Last 24 Hours: Laboratory Results - last 24 hr 06/30/19 06/30/19 06/30/19 Range/Units 19:50 19:50 23:56 WBC 10.62 H (3.98-10.04) K/mm3 RBC 4.05 (3.98-5.22) M/mm3 Hgb 11.9 (11.2-15.7) gm/dl Hct 35.0 (34.1-44.9) % MCV 86.4 (79.4-94.8) fl MCH 29.4 (25.6-32.2) pg MCHC 34.0 (32.2-35.5) g/dl RDW Std Deviation 43.2 (36.4-46.3) fL Plt Count 239 (182-369) K/mm3 MPV 10.4 (9.4-12.3) fl Neut % (Auto) 70.2 (34.0-71.1) % Lymph % (Auto) 22.3 (19.3-51.7) % Atlantic % (Auto) 6.6 (4.7-12.5) % Eos % (Auto) 0.8 (0.7-5.8) Baso % (Auto) 0.1 (0.1-1.2) % Neut # (Auto) 7.46 H (1.56-6.13) K/mm3 Lymph # (Auto) 2.37 (1.18-3.74) K/mm3 [place] # (Auto) 0.70 H (0.24-0.36) K/mm3 Eos # (Auto) 0.08 (0.04-0.36) K/mm3 Baso # (Auto) 0.01 (0.01-0.08) K/mm3 POC Glucose 83 (70-105) mg/dL RPR Non-reactive (NONREACTIVE) 07/01/19 Range/Units 03:53 WBC (3.98-10.04) K/mm3 RBC (3.98-5.22) M/mm3 Hgb (11.2-15.7) gm/dl Hct (34.1-44.9) % MCV (79.4-94.8) fl MCH (25.6-32.2) pg MCHC (32.2-35.5) g/dl RDW Std Deviation (36.4-46.3) fL Plt Count (182-369) K/mm3 MPV (9.4-12.3) fl Neut % (Auto) (34.0-71.1) % Lymph % (Auto) (19.3-51.7) % Atlantic % (Auto) (4.7-12.5) % Eos % (Auto) (0.7-5.8) Baso % (Auto) (0.1-1.2) % Neut # (Auto) (1.56-6.13) K/mm3 Lymph # (Auto) (1.18-3.74) K/mm3 Atlantic # (Auto) (0.24-0.36) K/mm3 Eos # (Auto) (0.04-0.36) K/mm3 Baso # (Auto) (0.01-0.08) K/mm3 POC Glucose 101 (70-105) mg/dL RPR (NONREACTIVE) Med Orders - Current: Current Medications Calcium Carbonate/Glycine (Tums) 1,000 mg PO Q2H PRN PRN Reason: Indigestion Diphenhydramine HCl (Benadryl) 25 mg IVPUSH Q6H PRN PRN Reason: Itching Ephedrine Sulfate (Ephedrine Sulfate) 5 mg IVPUSH ASDIRECTED PRN PRN Reason: HYPOTENTSION Last Admin: 07/01/19 03:35 Dose: 5 mg Fentanyl (Sublimaze) 100 mcg EPIDUR Q3H PRN PRN Reason: Pain Last Admin: 07/01/19 02:19 Dose: 100 mcg Fentanyl/Bupivacaine HCl (Fentanyl/Bupivacaine/Ns 2 Mcg-0.125% 100 Ml) 100 ml EPIDUR CONTINUOUS PRN PRN Reason: Pain Last Admin: 07/01/19 02:19 Dose: 100 ml Lactated Ringer's (Ringers, Lactated) 1,000 mls @ 100 mls/hr IV ASDIRECTED BRITTNEY Last Admin: 07/01/19 03:36 Dose: 100 mls/hr Oxytocin/Lactated Ringer's (Pitocin In Lr 10 Units/1,000 Ml) 10 unit in 1,000 mls @ 12 mls/hr IV TITRATE BRITTNEY; Protocol Oxytocin/Lactated Ringer's (Pitocin In Lr 20 Units/1,000 Ml) 20 unit in 1,000 mls @ 500 mls/hr IV .CONTINUOUS BRITTNEY Misoprostol (Cytotec) 25 mcg VAG ONETIME BRITTNEY Last Admin: 06/30/19 19:56 Dose: 25 mcg Nalbuphine HCl (Nubain) 10 mg IVPUSH Q2H PRN PRN Reason: Pain Ondansetron HCl (Zofran) 4 mg IVPUSH Q4H PRN PRN Reason: Nausea/Vomiting Sodium Chloride (Saline Flush) 10 ml FLUSH ASDIRECTED PRN PRN Reason: Keep Vein Open Discontinued Medications Misoprostol (Cytotec) 25 mcg VAG ONETIME ONE Stop: 07/01/19 00:01 Misoprostol (Cytotec) 50 mcg VAG ONETIME ONE Stop: 07/01/19 04:01 - Exam General: Alert, Oriented (Female) Exam: Normal External Exam Extremities: Normal Inspection, Non-Tender, No Pedal Edema, Normal Capillary Refill Skin: Warm, Dry, Intact Psy/Mental Status: Alert, Normal Affect, Normal Mood - Problem List & Annotations (1) 39 weeks gestation of SNOMED Code(s): 20409269 Code(s): Z3A.39 - 39 WEEKS GESTATION OF Status: Acute Current Visit: Yes (2) Double nuchal cord SNOMED Code(s): 994107245 Code(s): O69.1XX0 - LABOR AND DELIVERY COMP BY CORD AROUND NECK, W COMPRSN, UNSP Status: Acute Current Visit: Yes Qualifiers: Fetus number: single or unspecified fetus Qualified Code(s): O69.1XX0 - Labor and delivery complicated by cord around neck, with compression, not applicable or unspecified (3) Normal vaginal delivery SNOMED Code(s): 22300617, 246172674 Code(s): O80 - ENCOUNTER FOR FULL-TERM UNCOMPLICATED DELIVERY Status: Acute Current Visit: Yes - Problem List Review Problem List Initiated/Reviewed/Updated: No - My Orders Last 24 Hours: My Active Orders 06/30/19 19:27 Patient Status [ADT] Routine Activity as Tolerated [RC] PFP Communication Order [RC] ASDIRECTED Heart Tones [RC] ASDIRECTED Notify Provider [RC] PFP Notify Provider [RC] PRN Peripheral IV Care [RC] . DIRECTED Vital Signs [RC] PER UNIT ROUTINE Calcium Carbonate [Tums] 1,000 mg PO Q2H PRN Nalbuphine [Nubain] 10 mg IVPUSH Q2H PRN Ondansetron [Zofran] 4 mg IVPUSH Q4H PRN Sodium Chloride 0.9% [Saline Flush] 10 ml FLUSH ASDIRECTED PRN Electronic Heart Tones Ext w TOCO [WOMSER] Routine Electronic Heart Tones Internal [WOMSER] Per Unit Routine Peripheral IV Insertion Adult [OM.PC] Routine Resuscitation Status Routine 06/30/19 19:30 Lactated Ringers [Ringers, Lactated] 1,000 ml IV ASDIRECTED Oxytocin/Lactated Ringers [Pitocin in LR 10 Units/1,000 ML] 10 unit in 1,000 ml IV TITRATE Oxytocin/Lactated Ringers [Pitocin in LR 20 Units/1,000 ML] 20 unit in 1,000 ml IV .CONTINUOUS 06/30/19 20:00 miSOPROStoL [Cytotec] 25 mcg VAG ONETIME 07/01/19 Breakfast Regular Diet [DIET] Brief History: [facility] LIVE . L/D Delivery Note. Patient Name: SO VOSS Record Number: [id number]. Date of : [birth year]Patient Status: Inpatient. Attending Provider: Duke Godinez Number: [id number]. Date: 07/01/19 04:36Initialization Date: 07/01/19 04:36. L & D Note. - General Info. Date of Service: 07/01/19. Mother's Due Date: 07/05/19. - Delivery Note. Labor: Augmented by Oxytocin. Cervical Ripening Method: Misoprostil. Delivery Outcome: Livebirth (Male liveborn Saturday at 0415 hrs. CHIN nuchal cord 2 under epidural anesthesia over no episiotomy Apgars 8/8 at one and 5 minutes respectively 30/7/50 grams 8 lbs. 4 oz.). Delivery Method: Spontaneous Vaginal Delivery-Single. Infant Delivery Mode: Spontaneous. Presentation: Left Occiput Anterior (CHIN). Nuchal Cord: Present (x2 tight unable to reduce over head or shoulders and cord clamped and cut delivery approximately 10 seconds after cutting cord). Anesthesia Type: None. Episiotomy Type: None. Laceration: None. Placenta: Intact, Spontaneous (0418 hrs Saturday07/01/2019 velamentous insertion of the cord examined and intact). Cord: 3 Vessels. Estimated Blood Loss: 250. Resuscitation Needed: No. : Suctioned, Bulb Syringe, Stimulated, Warmed , [place] Used, Warmer Used. Provider: Duke Godinez. Score 1 min: 8. Score 5 min: 8. - General Info. Date of Service: . Functional Status: Reports: Pain Controlled. - Review of Systems. General : Reports: No Symptoms. HEENT: Reports: No Symptoms. Pulmonary: Reports: No Symptoms. Cardiovascular: Reports: No Symptoms. Gastrointestinal: Reports: No Symptoms. Genitourinary: Reports: No Symptoms. Musculoskeletal: Reports: No Symptoms. Skin: Reports: No Symptoms. Neurological: Reports: No Symptoms. Psychiatric: Reports: No Symptoms. - Patient Data. Vitals - Most Recent: Last Vital Signs. Temp 97.9 F 06/30/19 19:27. Pulse 67 06/30/19 19:27. Resp 16 06/30/19 19:27. BP 128/69 06/30/19 19:27. Pulse Ox 97 07/01/19 01: 57. Weight - Most Recent: 286 lb. Lab Results Last 24 Hours: Laboratory Results - last 24 hr. 06/30/2000/Range/Units. 19:5019:5023:56. WBC 10.62 H (3.98-10.04) K/mm3. RBC 4.05 (3.98-5.22) M/mm3. Hgb 11.9 (11.2- 15.7) gm/dl. Hct 35.0 (34.1-44.9) %. MCV 86.4 (79.4-94.8) fl. MCH 29.4 ( 25.6-32.2) pg. MCHC 34.0 (32.2-35.5) g/dl. RDW Std Deviation 43.2 (36.4-46.3 ) fL. Plt Count 239 (182-369) K/mm3. MPV 10.4 (9.4-12.3) fl. Neut % (Auto ) 70.2 (34.0-71.1) %. Lymph % (Auto) 22.3 (19.3-51.7) %. Atlantic % (Auto) 6.6 ( 4.7-12.5) %. Eos % (Auto) 0.8 (0.7-5.8). Baso % (Auto) 0.1 (0.1-1.2) %. Neut # (Auto) 7.46 H (1.56-6.13) K/mm3. Lymph # (Auto) 2.37 (1.18-3.74) K/ mm3. Atlantic # (Auto) 0.70 H (0.24-0.36) K/mm3. Eos # (Auto) 0.08 (0.04-0.36) K /mm3. Baso # (Auto) 0.01 (0.01-0.08) K/mm3. POC Glucose 83 (70-105) mg/dL. RPR Non-reactive (NONREACTIVE). 07/01/19Range/Units. 03:53. WBC (3.98-10.04) K/mm3. RBC (3.98-5.22) M/mm3. Hgb (11.2-15.7) gm/dl. Hct (34.1-44.9) %. MCV (79.4-94.8) fl. MCH (25.6-32.2) pg. MCHC (32.2-35.5) g/dl. RDW Std Deviation (36.4-46.3) fL. Plt Count (182-369) K/mm3. MPV (9.4-12.3) fl. Neut % (Auto) (34.0-71.1) %. Lymph % (Auto) (19.3-51.7) %. Atlantic % (Auto) ( 4.7-12.5) %. Eos % (Auto) (0.7-5.8). Baso % (Auto) (0.1-1.2) %. Neut # ( Auto) (1.56-6.13) K/mm3. Lymph # (Auto) (1.18-3.74) K/mm3. Atlantic # (Auto) ( 0.24-0.36) K/mm3. Eos # (Auto) (0.04-0.36) K/mm3. Baso # (Auto) (0.01-0.08) K/mm3. POC Glucose 101 (70-105) mg/dL. RPR (NONREACTIVE). Med Orders - Current: Current Medications. Calcium Carbonate/Glycine (Tums) 1,000 mg PO Q2H PRN. PRN Reason: Indigestion. Diphenhydramine HCl (Benadryl) 25 mg IVPUSH Q6H PRN. PRN Reason: Itching. Ephedrine Sulfate (Ephedrine Sulfate) 5 mg IVPUSH ASDIRECTED PRN. PRN Reason: HYPOTENTSION. Last Admin: 07/01/19 03: 35 Dose: 5 mg. Fentanyl (Sublimaze) 100 mcg EPIDUR Q3H PRN. PRN Reason: Pain. Last Admin: 07/01/19 02:19 Dose: 100 mcg. Fentanyl/Bupivacaine HCl ( Fentanyl/Bupivacaine/Ns 2 Mcg-0.125% 100 Ml) 100 ml EPIDUR CONTINUOUS PRN. PRN Reason: Pain. Last Admin: 07/01/19 02:19 Dose: 100 ml. Lactated Ringer's (Ringers, Lactated) 1,000 mls @ 100 mls/hr IV ASDIRECTED BRITTNEY. Last Admin: 03:36 Dose: 100 mls/hr. Oxytocin/Lactated Ringer's (Pitocin In Lr 10 Units/1,000 Ml) 10 unit in 1,000 mls @ 12 mls/hr IV TITRATE BRITTNEY; Protocol. Oxytocin/Lactated Ringer's (Pitocin In Lr 20 Units/1,000 Ml) 20 unit in 1,000 mls @ 500 mls/hr IV .CONTINUOUS BRITTNEY. Misoprostol (Cytotec) 25 mcg VAG ONETIME BRITTNEY. Last Admin: 06/30/19 19:56 Dose: 25 mcg. Nalbuphine HCl (Nubain) 10 mg IVPUSH Q2H PRN. PRN Reason: Pain. Ondansetron HCl (Zofran) 4 mg IVPUSH Q4H PRN. PRN Reason: Nausea/Vomiting. Sodium Chloride (Saline Flush) 10 ml FLUSH ASDIRECTED PRN. PRN Reason: Keep Vein Open. Discontinued Medications. Misoprostol (Cytotec) 25 mcg VAG ONETIME ONE. Stop: 07/01/19 00:01. Misoprostol (Cytotec) 50 mcg VAG ONETIME ONE. Stop: 07/01/19 04:01. - Exam. General: Alert, Oriented. (Female) Exam: Normal External Exam. Extremities : Normal Inspection, Non-Tender, No Pedal Edema, Normal Capillary Refill. Skin : Warm, Dry, Intact. Psy/Mental Status: Alert, Normal Affect, Normal Mood. - Problem List & Annotations. (1) 39 weeks gestation of . SNOMED Code(s ): 16189685. Code(s): Z3A.39 - 39 WEEKS GESTATION OF Status: Acute Current Visit: Yes. (2) Double nuchal cord. SNOMED Code(s): 567213247. Code(s): O69.1XX0 - LABOR AND DELIVERY COMP BY CORD AROUND NECK, W COMPRSN, UNSP Status: Acute Current Visit: Yes. Qualifiers: Fetus number: single or unspecified fetus Qualified Code(s): O69.1XX0 - Labor and delivery complicated by cord around neck, with compression, not applicable or unspecified. (3) Normal vaginal delivery. SNOMED Code(s): 95300083, 495538140. Code(s): O80 - ENCOUNTER FOR FULL-TERM UNCOMPLICATED DELIVERY Status: Acute Current Visit: Yes. - Problem List Review. Problem List Initiated/Reviewed/Updated: No. - My Orders. Last 24 Hours: My Active Orders. 06/30/19 19:27. Patient Status [ADT] Routine. Activity as Tolerated [ RC] PFP. Communication Order [RC] ASDIRECTED. Heart Tones [RC] ASDIRECTED. Notify Provider [RC] PFP. Notify Provider [RC] PRN. Peripheral IV Care [RC] . DIRECTED. Vital Signs [RC] PER UNIT ROUTINE. Calcium Carbonate [Tums] 1,000 mg PO Q2H PRN. Nalbuphine [Nubain] 10 mg IVPUSH Q2H PRN. Ondansetron [Zofran] 4 mg IVPUSH Q4H PRN. Sodium Chloride 0.9% [Saline Flush] 10 ml FLUSH ASDIRECTED PRN. Electronic Heart Tones Ext w TOCO [ WOMSER] Routine. Electronic Heart Tones Internal [WOMSER] Per Unit Routine. Peripheral IV Insertion Adult [OM.PC] Routine. Resuscitation Status Routine. 06/30/19 19:30. Lactated Ringers [Ringers, Lactated] 1,000 ml IV ASDIRECTED. Oxytocin/Lactated Ringers [Pitocin in LR 10 Units/1,000 ML] 10 unit in 1,000 ml IV TITRATE. Oxytocin/Lactated Ringers [Pitocin in LR 20 Units/ 1,000 ML] 20 unit in 1,000 ml IV .CONTINUOUS. 06/30/19 20:00. miSOPROStoL [ Cytotec] 25 mcg VAG ONETIME. 07/01/19 Breakfast. Regular Diet [DIET] Diagnosis: Stroke: No - Discharge Data Discharge Date: 07/02/19 Discharge Disposition: Home, Self-Care 01 Condition: Good - Referral to Home Health Primary Care Physician: Duke Godinez MD - Discharge Diagnosis/Problem(s) (1) 39 weeks gestation of SNOMED Code(s): 64117720 ICD Code: Z3A.39 - 39 WEEKS GESTATION OF Status: Acute Current Visit: Yes (2) Double nuchal cord SNOMED Code(s): 810502612 ICD Code: O69.1XX0 - LABOR AND DELIVERY COMP BY CORD AROUND NECK, W COMPRSN, UNSP Status: Acute Current Visit: Yes Qualifiers: Fetus number: single or unspecified fetus Qualified Code(s): O69.1XX0 - Labor and delivery complicated by cord around neck, with compression, not applicable or unspecified (3) Normal vaginal delivery SNOMED Code(s): 53926208, 375022580 ICD Code: O80 - ENCOUNTER FOR FULL-TERM UNCOMPLICATED DELIVERY Status: Acute Current Visit: Yes (4) Gestational diabetes SNOMED Code(s): 60748087 ICD Code: O24.419 - GESTATIONAL DIABETES MELLITUS IN , UNSP CONTROL Status: Acute Current Visit: No Qualifiers: Gestational diabetes mellitus control: diet-controlled Trimester: third trimester Qualified Code(s): O24.410 - Gestational diabetes mellitus in , diet controlled - Patient Summary/Data Complications: None Consults: None Hospital Course: Uneventful - Patient Instructions Diet: Usual Diet as Tolerated Driving: Do Not Drive (Is 48 hours) Showering/Bathing: May Shower Notify Provider of: Fever, Increased Pain, Swelling and Redness, Drainage, Nausea and/or Vomiting - Discharge Plan *PRESCRIPTION DRUG MONITORING PROGRAM REVIEWED*: No *COPY OF PRESCRIPTION DRUG MONITORING REPORT IN PATIENT DANIA: No Home Medications: Home Meds Vit with Ca/FA/Iron [ Plus Iron] 1 each PO DAILY #40 tablet [Rx] Acetaminophen [Tylenol] 650 mg PO Q6H PRN tablet 07/02/19 [Rx] Benzocaine/Menthol [[facility] [place]] 1 spray TOP ASDIRECTED PRN canister 07/02/19 [Rx] Docusate Sodium [Colace] 100 mg PO BID PRN cap 07/02/19 [Rx] Ibuprofen [Motrin] 600 mg PO Q6H PRN tablet 07/02/19 [Rx] Witch Leesa [Tucks] 1 pad TOP ASDIRECTED PRN pad 07/02/19 [Rx] Referrals: Duke Godinez MD [Primary Care Provider] - ( Patient has Appointment to see me in 2 weeks) - Discharge Summary/Plan Comment DC Time >30 min.: No - Patient Data Vitals - Most Recent: Last Vital Signs Temp 97.3 F 07/02/19 04:07 Pulse 89 07/02/19 04:07 Resp 15 07/02/19 04:07 BP 124/48 L 07/02/19 04:07 Pulse Ox 98 07/02/19 04:07 Weight - Most Recent: 286 lb I&O - Last 24 hours: Intake & Output 07/01/19 07/02/19 07/02/19 22:59 06:59 14:59 Intake Total 320 Balance 320 Med Orders - Current: Current Medications Acetaminophen (Tylenol) 650 mg PO Q4H PRN PRN Reason: mild pain or fever Benzocaine/Menthol ([facility] [place]) 0 gm TOP ASDIRECTED PRN PRN Reason: Perineal Comfort Measure Last Admin: 07/01/19 06:13 Dose: 1 applic Docusate Sodium (Colace) 100 mg PO BID PRN PRN Reason: Constipation Last Admin: 07/01/19 06:13 Dose: 100 mg Ibuprofen (Motrin) 600 mg PO Q4H PRN PRN Reason: Mild pain or fever Last Admin: 07/02/19 04:11 Dose: 600 mg Witch Leesa (Tucks) 1 pad TOP ASDIRECTED PRN PRN Reason: Perineal Comfort Measure Last Admin: 07/01/19 06:13 Dose: 1 canister Discontinued Medications Bupivacaine HCl (Sensorcaine-Mpf 0.25%) 10 ml .ROUTE .STK-MED ONE Stop: 07/01/19 00:01 Calcium Carbonate/Glycine (Tums) 1,000 mg PO Q2H PRN PRN Reason: Indigestion Diphenhydramine HCl (Benadryl) 25 mg IVPUSH Q6H PRN PRN Reason: Itching Ephedrine Sulfate (Ephedrine Sulfate) 5 mg IVPUSH ASDIRECTED PRN PRN Reason: HYPOTENTSION Last Admin: 07/01/19 03:35 Dose: 5 mg Fentanyl (Sublimaze) 100 mcg EPIDUR Q3H PRN PRN Reason: Pain Last Admin: 07/01/19 02:19 Dose: 100 mcg Fentanyl/Bupivacaine HCl (Fentanyl/Bupivacaine/Ns 2 Mcg-0.125% 100 Ml) 100 ml EPIDUR CONTINUOUS PRN PRN Reason: Pain Last Admin: 07/01/19 02:19 Dose: 100 ml Lactated Ringer's (Ringers, Lactated) 1,000 mls @ 100 mls/hr IV ASDIRECTED BRITTNEY Last Admin: 07/01/19 03:36 Dose: 100 mls/hr Oxytocin/Lactated Ringer's (Pitocin In Lr 10 Units/1,000 Ml) 10 unit in 1,000 mls @ 12 mls/hr IV TITRATE BRITTNEY; Protocol Oxytocin/Lactated Ringer's (Pitocin In Lr 20 Units/1,000 Ml) 20 unit in 1,000 mls @ 500 mls/hr IV .CONTINUOUS BRITTNEY Misoprostol (Cytotec) 25 mcg VAG ONETIME BRITTNEY Last Admin: 06/30/19 19:56 Dose: 25 mcg Misoprostol (Cytotec) 25 mcg VAG ONETIME ONE Stop: 07/01/19 00:01 Last Admin: 07/01/19 07:32 Dose: Not Given Misoprostol (Cytotec) 50 mcg VAG ONETIME ONE Stop: 07/01/19 04:01 Last Admin: 07/01/19 07:33 Dose: Not Given Nalbuphine HCl (Nubain) 10 mg IVPUSH Q2H PRN PRN Reason: Pain Ondansetron HCl (Zofran) 4 mg IVPUSH Q4H PRN PRN Reason: Nausea/Vomiting Sodium Chloride (Saline Flush) 10 ml FLUSH ASDIRECTED PRN PRN Reason: Keep Vein Open
== END 2019-07-02 12:30 | disposition home or self-care (01) | DRG 807 ==
LOC: JD.OB 04:15 → OBSVTOIN 07-01 04:15 → JD.OB 07-01 04:15
PROVIDERS: ADMIT Obstetrics & Gynecology; ATTEND Obstetrics & Gynecology
PROC: 10E0XZZ Delivery of Products of Conception, External Approach (ICD-10-PCS; principal; 2019-07-01)
PROC: 3E0P7VZ Introduction of Hormone into Female Reproductive, Via Natural or Artificial Opening (ICD-10-PCS; 2019-07-01)
PROC: 3E0R3BZ Introduction of Anesthetic Agent into Spinal Canal, Percutaneous Approach (ICD-10-PCS; 2019-07-01)
PROC: 00HU33Z Insertion of Infusion Device into Spinal Canal, Percutaneous Approach (ICD-10-PCS; 2019-07-01)
DX: O69.1XX0 Labor and delivery complicated by cord around neck, with compression, not applicable or unspecified (principal); Z37.0 Single live birth; O24.420 Gestational diabetes mellitus in childbirth, diet controlled; Z3A.39 39 weeks gestation of pregnancy
CPT/HCPCS: 01967; 36415; 51702; 59025; 59409; 82962; 85025; 86592; A9270-GY; J3010; J3490; J7120